=== PATIENT | male | born 1965 | race Caucasian/White ===

== ENCOUNTER 2020-04-24 13:27 | Emergency (ER) | payer OTHER ==
--- NOTE | 2020-04-24 13:43 | TELE ---
HPI Do you have fever,cough or shortness of breath?: No - General Reason For Visit: COVID 19 TEST Past History - Travel History Traveled outside of the country in the last 30 days: No Close contact w/someone who was outside of country & ill: No Review of Systems - Review of Systems Able to Perform ROS?: Yes Comments:: 04/24/20 13:43 CONSTITUTIONAL: Absent: fever, chills, diaphoresis, generalized weakness, malaise, loss of appetite HEENT: Absent: rhinorrhea, nasal congestion, throat pain, throat swelling, difficulty swallowing, mouth swelling, ear pain, eye pain, visual Changes CARDIOVASCULAR: Absent: chest pain, loss of consciousness, palpitations, irregular heart rate, peripheral edema RESPIRATORY: Absent: cough, shortness of breath, dyspnea with exertion, orthopnea, wheezing, stridor, hemoptysis GASTROINTESTINAL: Absent: abdominal pain, abdominal distension, nausea, vomiting, diarrhea, constipation, melena, hematochezia SKIN: Absent: rash, itching, pallor NEUROLOGIC: Absent: headache, focal weakness or paresthesias, dizziness, unsteady gait, seizure, mental status changes, bladder or bowel incontinence PSYCHIATRIC: Absent: anxiety, depression, suicidal or homicidal ideation, hallucinations. Limited Thai proficient: No *Physical Exam - Physical Exam 04/24/20 13:43 GENERAL: Well developed, well nourished. Awake and alert. No acute distress. PULMONARY: No evidence of respiratory distress. NEUROLOGICAL: Alert, awake, appropriate. PSYCHIATRIC: Cooperative. Good eye contact. Appropriate mood and affect. - Medical Decision Making 04/24/20 14:26 The patient is a 55-year-old male who presents to urgent telehealth visit, for COVID testing. He states that he has been feeling more tired than usual and had one episode of vomiting 2 days ago. He currently has no symptoms at this time. 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 He is unsure of COVID exposure. There was a connectivity issue with back line and was not able to video chat with the patient. Visit was conducted via telephone. A/P: Need for COVID testing Patient does not sound in respiratory distress on the phone, currently asymptomatic. We will send for COVID testing at [facility]. Return precautions and self quarantine isolation instructions given. Discharge Diagnosis at time of Disposition: Counseled about COVID-19 virus infection - Referrals Follow-up Referral(s): Khalif Underwood [Primary Care Provider] - - Patient Instructions Discharge Instructions: [facility]onavirus Instructions, [facility] COVID-19 Isolation Protocol Additional Discharge Instructions: You were tested for COVID today. Please isolate yourself until your test results come back. Guidance has been provided in your discharge papers You should receive a call within 24 to 48 hours from our department with your results. Thank you for using our telehealth service today!
== END 2020-04-24 15:45 | disposition home or self-care (01) ==
LOC: JVIRT 13:27
DX: Z03.818 Encounter for observation for suspected exposure to other biological agents ruled out (principal)
CPT/HCPCS: Q3014-GT; U0003

== ENCOUNTER 2023-10-11 10:58 | Emergency (ER) | payer OTHER ==
[2023-10-11 11:23] VITALS: BP 114/59; PULSE 103; RESP 17; TEMP 99.9; BMI 22.3
[2023-10-11] MEDS ORDERED: ACETAMINOPHEN 500 MG TABLET (FP) PO ONE (12:52)
[2023-10-11] MEDS ORDERED: ACETAMINOPHEN 500 MG TABLET (FP) ONE (12:58)
== END 2023-10-11 12:59 | disposition home or self-care (01) ==
LOC: JERFT 10:58
DX: R05.9 Cough, unspecified (principal); R50.9 Fever, unspecified; M79.10 Myalgia, unspecified site; J10.1 Influenza due to other identified influenza virus with other respiratory manifestations; Z20.822 Contact with and (suspected) exposure to COVID-19
CPT/HCPCS: 0241U-QW; 99283-25

== ENCOUNTER 2023-10-17 13:47 | Emergency (ER) | payer OTHER ==
[2023-10-17 14:07] VITALS: BP 120/65; PULSE 88; RESP 20; TEMP 98.6; BMI 20.9
== END 2023-10-17 16:35 | disposition home or self-care (01) ==
LOC: JERFT 13:47
DX: R50.9 Fever, unspecified (principal); R05.9 Cough, unspecified; J11.1 Influenza due to unidentified influenza virus with other respiratory manifestations
CPT/HCPCS: 71046-TC-FY; 99283-25